=== PATIENT | female | born 1950 | race Caucasian/White ===

== ENCOUNTER → 2016-05-06 | Outpatient (CLI) | payer MEDICARE, BC ==
--- NOTE | 2016-05-06 22:32 | WWHP ---
DATE OF SERVICE: 05/06/2016 CHIEF COMPLAINT: The patient is here for her routine gynecologic exam and mammogram. HISTORY OF PRESENT ILLNESS: This is a 65-year-old G3, P2-0-1-2 with an LMP of 1995. The patient is without gynecologic complaints. PAST MEDICAL HISTORY: 1. Previous Manuelito's disease and Graves' disease, status post radiation therapy with resulting hypothyroidism. 2. History of multiple sclerosis. 3. Herniated discs of the back. 4. Fibromyalgia. 5. Elevated cholesterol. 6. Osteopenia. MEDICATIONS: 1. Lipitor 20 mg daily. 2. Synthroid 125 mcg daily. 3. Baclofen 40 mg b.i.d. 4. Neurontin 300 mg b.i.d. 5. Aspirin 81 mg daily. 6. Xanax 0.5 mg at bedtime. 7. [place] 10/325 mg p.r.n. 8. Multivitamin daily. 9. Vitamin D 5000 units daily. 10. Vitamin B complex daily. 11. Fish oil supplement 2 daily. ALLERGIES: NO KNOWN DRUG ALLERGIES. 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 SOCIAL HISTORY: She quit smoking in 2003 and denies alcohol and drug use. She has been since 1974. 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 REVIEW OF SYSTEMS: She has lost about 4 pounds over the last year. She denies respiratory, cardiac or GI problems. She denies maltreatment or falling. : Occasional stress incontinence. PHYSICAL EXAM: Blood pressure 127/83. Height 5 feet 5 inches. Weight 217 pounds. Temperature 98.5. Pulse 79. This is a well-developed, well-nourished white female who is alert and oriented x3, in no acute distress. She does have some leg weakness related to her MS. HEENT is within normal limits. NECK: Supple without mass or thyromegaly. CHEST AND LUNGS: Clear to auscultation. HEART: Regular rate and rhythm. Breasts are without mass or discharge. Axillary exam is negative for adenopathy. BACK: Negative for CVA tenderness. ABDOMEN: Mildly obese, soft, nontender, without palpable masses. PELVIC EXAM: External genitalia reveal mild atrophy without lesions. Cervix and vagina reveal mild atrophy without lesions. There is no significant prolapse and no significant cystocele at rest. The uterus is midposition, nongravid size and nontender. There are no palpable adnexal masses or tenderness. Rectovaginal exam is negative for mass or tenderness and is negative for occult blood. EXTREMITIES: Nontender. IMPRESSION: 1. A 65-year-old menopausal female with normal gynecologic exam. 2. Mild stress urinary incontinence without any significant physical findings at this time. 3. History of osteopenia. PLAN: 1. Pap smear was deferred, since she had a normal one last year. 2. Self breast examination was discussed. 3. Mammogram will be done today. 4. I have recommended screening colonoscopy, since she has not had this done. She states she will consider looking into this. 5. She will continue to do Kegel exercises as directed. 6. She will follow up with her illuminating engineer for bone density testing, as she has done in the past. 7. She will return in one year.
--- NOTE | 2016-05-07 10:10 | MM ---
Reason for exam: screening (asymptomatic). Last mammogram was performed 1 year and 1 month ago. History: Patient is postmenopausal. Family history of breast cancer in maternal grandmother and breast cancer in mother. Physical Findings: A clinical breast exam by your physician is recommended on an annual basis and results should be correlated with mammographic findings. MG 3D Screening Mammo W/Cad Bilateral CC and MLO view(s) were taken. Prior study comparison: April 10, 2015, bilateral MG screening mammo w CAD. April 05, 2014, bilateral MG screening mammo w CAD. There are scattered fibroglandular densities. There is no discrete abnormality. ASSESSMENT: Negative, BI-RAD 1 RECOMMENDATION: Routine screening mammogram of both breasts in 1 year.
== END | disposition home or self-care (01) ==
LOC: WWCWWP 13:13
PROVIDERS: ATTEND Obstetrics & Gynecology
DX: Z12.31 Encounter for screening mammogram for malignant neoplasm of breast (principal)
CPT/HCPCS: 77063; G0202

== ENCOUNTER → 2017-05-19 | Outpatient (CLI) | payer MEDICARE, BC ==
--- NOTE | 2017-05-19 16:37 | WWHP ---
[facility] - HISTORY AND PHYSICAL DATE OF DICTATION: 05/19/2017 CHIEF COMPLAINT: The patient is here for her routine gynecologic exam and mammogram. HISTORY OF PRESENT ILLNESS: This is a 66-year-old G3, P2-0-1-2 with an LMP of 1995. The patient is without gynecologic complaints and denies any postmenopausal bleeding. PAST MEDICAL HISTORY: Manuelito's disease and Graves disease in the past, and she is status post radiation therapy with resulting hypothyroidism. Also history of multiple sclerosis, herniated discs of the back, fibromyalgia, elevated cholesterol and osteopenia. MEDICATIONS: 1. Lipitor 20 mg daily. 2. Synthroid 112 mcg daily. 3. Baclofen 40 mg b.i.d. 4. Neurontin 300 mg b.i.d. 5. Aspirin 81 mg daily. 6. Xanax 0.5 mg at bedtime. 7. [place] 10/325 mg p.r.n. 8. Multivitamin 1 daily. 9. Vitamin D 5000 units daily. 10.Vitamin B complex daily. 11.Fish oil supplement 2 daily. ALLERGIES: NO KNOWN DRUG ALLERGIES. Past surgical, IT GENERALIST and family histories are unchanged from the 04/10/2015 H&P. SOCIAL HISTORY: She quit smoking in 2003 and denies alcohol and drug use. She has been since 1974. Her has been dealing with multiple types of cancer. 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 REVIEW OF SYSTEMS: She has gained 3 pounds over the last year. She denies respiratory, cardiac or GI problems. She denies maltreatment or falling. : She does have occasional urinary stress incontinence and has noticed more leakage at night, so she has to wear a pad at night. PHYSICAL EXAMINATION: Blood pressure 127/83, height 5 feet 5 inches, weight 220 pounds, BMI 36. Temperature 98.3, pulse 76. This is a well-developed, heavyset white female who is alert and oriented x3, in no acute distress. HEENT: Within normal limits. NECK: Supple without mass or thyromegaly. CHEST AND LUNGS: Clear to auscultation. HEART: Regular rate and rhythm. Breasts are without mass or discharge. Axillary exam is negative for adenopathy. BACK: Negative for CVA tenderness. ABDOMEN: Soft, nontender, without palpable masses. PELVIC EXAM: External genitalia reveal mild atrophy without lesions. Cervix and vagina reveal mild atrophy without lesions. There is no significant prolapse. The uterus is mid position, nongravid size and nontender. There are no palpable adnexal masses or tenderness. Rectovaginal exam is negative for mass or tenderness and is negative for occult blood. Extremities are nontender. IMPRESSION: 1. [id number]-old menopausal female with normal gynecologic exam. 2. History of osteopenia. 3. Mild stress urinary incontinence without any significant physical findings at this time. PLAN: 1. Pap smear was performed. 2. Self breast examination was discussed. 3. Screening mammogram will be done today. 4. I have recommended screening colonoscopy based on her age. She is declining this. I have stressed the importance of doing this for cancer screening, and she understands this. 5. Osteoporosis prevention was discussed. She will follow up with her director microbiology for management of her osteopenia and for bone density testing as she has done in the past. 6. She will return in one year. MMODL / IJN: [id number] / MARCELINO
--- NOTE | 2017-05-20 09:16 | MM ---
Reason for exam: screening (asymptomatic). Last mammogram was performed 1 year ago. History: Patient is postmenopausal. Family history of breast cancer in maternal grandmother and breast cancer in mother. Physical Findings: A clinical breast exam by your physician is recommended on an annual basis and results should be correlated with mammographic findings. MG 3D Screening Mammo W/Cad Bilateral CC and MLO view(s) were taken. Prior study comparison: May 06, 2016, bilateral MG 3d screening mammo w/cad. April 10, 2015, bilateral MG screening mammo w CAD. The breast tissue is heterogeneously dense. This may lower the sensitivity of mammography. No significant changes when compared with prior studies. ASSESSMENT: Benign, BI-RAD 2 RECOMMENDATION: Routine screening mammogram of both breasts in 1 year.
== END | disposition home or self-care (01) ==
LOC: WWCWWP 14:40
PROVIDERS: ATTEND Obstetrics & Gynecology
DX: Z12.31 Encounter for screening mammogram for malignant neoplasm of breast (principal)
CPT/HCPCS: 77063; 77067

== ENCOUNTER → 2018-06-02 | Outpatient (CLI) | payer MEDICARE, BC ==
[2018-06-02 11:05] VITALS: BP 141/78; PULSE 68; RESP 16; TEMP 96.8; BMI 34.3
--- NOTE | 2018-06-02 13:47 | P.HPOB ---
History of Present Illness H&P Date: 06/02/18 Chief Complaint: The patient is here for her routine gynecologic exam and mammogram. This is a 67-year-old with an LMP of 1995. The patient is without gynecologic complaints and denies any postmenopausal bleeding. The patient did have an abnormal Pap smear on 05/19/2017 showing ascus with negative high-risk HPV testing. Review of Systems She has lost about 20 pounds over the last year. She denies respiratory or cardiac problems. G.I.: occasional constipation. She denies maltreatment or problems with falling. : she does have a history of stress urinary incontinence and can leak if she coughs hard. Past Medical History Past Medical History: Fibromyalgia, Thyroid Disorder Additional Past Medical History / Comment(s): Manuelito's and Graves' disease status post radiation therapy. Multiple sclerosis, carpal tunnel chronic back problems, fibromyalgia, and osteopenia. 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 She used HRT for about 10 years in the past. History of Any Multi-Drug Resistant Organisms: None Reported Past Surgical History: Adenoidectomy, Back Surgery, Tonsillectomy, Tubal Ligation Additional Past Surgical History / Comment(s): Cervical neck fusion. Past Psychological History: Anxiety Smoking Status: Former smoker (Quit in 2003) Past Alcohol Use History: None Reported Past Drug Use History: None Reported Additional History: She quit smoking 2003. She has been since 1974 and her has had several types of cancer. 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 - Past Family History Father Family Medical History: Diabetes Mellitus (Type II diabetes) Mother Family Medical History: Cancer Additional Family Medical History / Comment(s): Breast and uterine cancer. Maternal grandmother had breast cancer. Medications and Allergies Home Medications Medication Instructions Recorded Confirmed Type ALPRAZolam [Xanax] 0.5 mg PO HS PRN 12/31/13 06/02/18 History Baclofen [Lioresal] 40 mg PO BID 12/31/13 06/02/18 History Gabapentin [Neurontin] 300 mg PO BID 12/31/13 06/02/18 History HYDROcodone/APAP 10-325MG [[place] 1 each PO Q4HR PRN 12/31/13 06/02/18 History 10] Atorvastatin [Lipitor] 20 mg PO DAILY 06/02/18 06/02/18 History Allergies Allergy/AdvReac Type Severity Reaction Status Date / Time No Known Allergies Allergy Verified 06/02/18 10:52 Exam Vital Signs Temp Pulse Resp BP Pulse Ox 06/02/18 10:59 96.8 F L 68 16 141/78 97 Intake and Output 06/01/18 06/02/18 06/02/18 22:59 06:59 14:59 Other: Weight 90.718 kg Height 5'4", weight 200 pounds, BMI 34.3. This is a well-developed well-nourished heavyset white female who is alert and oriented times 3 in no acute distress. She has a very slow gait because of leg weakness secondary to multiple sclerosis. She uses a cane to walk. HEENT: Within normal limits. NECK: Supple without mass or thyromegaly. CHEST AND LUNGS: Clear to auscultation. HEART: Regular rate and rhythm. BREASTS: Are without mass or discharge. AXILLARY EXAM: Negative for adenopathy. BACK: Negative for CVA tenderness. ABDOMEN: Soft, nontender, without palpable masses. PELVIC EXAM: Normal external genitalia with mild atrophy. Cervix and vagina appear normal of mild atrophy. There is no unusual discharge. There is a small cystocele. The uterus is midposition, nongravid size and nontender. There are no palpable adnexal masses or tenderness. RECTAL EXAM: rectovaginal exam is negative for mass or tenderness and is negative for occult blood. EXTREMITIES: Nontender. IMPRESSION: 1. 67-year-old menopausal female with small cystocele and history of stress urinary incontinence. 2. History of abnormal Pap smear showing ascus with negative high-risk HPV testing. 3. Multiple medical problems including multiple sclerosis. 4. History of osteopenia followed by her gate clerk. PLAN: 1. Pap smear with high-risk HPV testing (co-test) was performed. This is the recommended follow-up for her Pap smear abnormality in women greater than 65 years of age. 2. Self breast awareness was discussed with the patient. 3. Screening mammogram will be done today. 4. Osteoporosis prevention was discussed. I have stressed the importance of adequate calcium, vitamin D and regular exercise. Recommended amounts of calcium and vitamin D were also discussed. She states she will follow-up with her gate clerk to determine when her next bone density test should be. 5. She does not get flu shots and is not interested in getting one. 6. I have recommended screening colonoscopy since she has never had this done. She is declining this and is planning to speak with Dr. Arana regarding possible Cologard testing. 7. She will return in one year.
--- NOTE | 2018-06-03 11:11 | MM ---
Reason for exam: screening (asymptomatic). Last mammogram was performed 1 year ago. History: Patient is postmenopausal. Family history of breast cancer in maternal grandmother and breast cancer in mother. Physical Findings: A clinical breast exam by your physician is recommended on an annual basis and results should be correlated with mammographic findings. MG 3D Screening Mammo W/Cad Bilateral CC and MLO view(s) were taken. Prior study comparison: May 19, 2017, bilateral MG 3d screening mammo w/cad. May 06, 2016, bilateral MG 3d screening mammo w/cad. There are scattered fibroglandular densities. No significant changes when compared with prior studies. ASSESSMENT: Benign, BI-RAD 2 RECOMMENDATION: Routine screening mammogram of both breasts in 1 year.
== END | disposition home or self-care (01) ==
LOC: WWCWWP 10:42
PROVIDERS: ATTEND Obstetrics & Gynecology
DX: Z12.31 Encounter for screening mammogram for malignant neoplasm of breast (principal)
CPT/HCPCS: 77063; 77067

== ENCOUNTER → 2019-02-08 | Outpatient (CLI) | payer MEDICARE, BC ==
[2019-02-08 14:30] VITALS: BP 135/77; PULSE 71; RESP 18; TEMP 98.1; BMI 36.2
--- NOTE | 2019-02-08 15:04 | P.PN ---
Progress Note - Text Progress Note Date: 02/08/19 Chief Complaint: 5 days of vaginal spotting starting 1 week ago. HPI: This is a 68-year-old 012 with an LMP of 1995. The patient started having vaginal spotting about 1 week ago. She states it was never like a period flow and she denies any cramping or pain. She has not been sexually active for many years. She has not had any spotting for the last 2 days. She did use HRT about 25 years ago but has not used this for many years. She denies using any supplements or medications for menopausal symptoms. ROS: She denies respiratory, cardiac, or GI problems. She denies any urinary symptoms and does not believe the blood is in her urine. She also denies any rectal bleeding. PE: Blood pressure: 135/77, Height: 5 feet 4 inches, Weight: 211 pounds, Temperature: 98.1, Pulse: 71. Pulse oximeter 98%. This is a well developed, well nourished, white female who is alert and oriented x3, in no acute distress. Abdomen: Soft nontender without palpable masses. Pelvic exam: External genitalia reveals mild atrophy without lesions. Cervix and vagina reveals mild atrophy without lesions. There is no blood or unusual discharge. There is no cervical motion tenderness. The uterus is mid positioned, nongravid size and nontender. There are no palpable adnexal masses or tenderness. Pap smear on 06/02/2018 was negative with negative high-risk HPV. Impression: 1. 68-year-old menopausal female with small postmenopausal bleeding during the past week with no significant physical findings on exam today. Plan: 1. Pelvic ultrasound will be done today to evaluate the endometrial thickness. If there is no evidence of endometrial thickening, consider conservative management with observation. If endometrial thickening is noted or if recurrent postmenopausal vaginal bleeding, consider endometrial sampling by endometrial biopsy or hysteroscopy with D&C. Time spent with the patient: 20 minutes
--- NOTE | 2019-02-08 15:57 | US ---
EXAMINATION TYPE: US transvaginal DATE OF EXAM: 02/08/2019 COMPARISON: NONE CLINICAL HISTORY: N95.0 PMB. TECHNIQUE: Transvaginal (TV Date of LMP: post menopausal patient EXAM MEASUREMENTS: Uterus: 5.5 x 2.9 x 4.6 cm Endometrial Stripe: 0 poorly visualized cm Right Ovary: 1.0 x 0.7 x 0.7 cm Left Ovary: not visualized due to atrophy/overlying bowel gas 1. Uterus: Retroverted, fibroid noted measuring 1.6 x 1.5 x 1.8cm 2. Endometrium: Poorly defined, probable within normal limits 3. Right Ovary: wnl 4. Left Ovary: not visualized due to atrophy/overlying bowel gas 5. Bilateral Adnexa: wnl 6. Posterior cul-de-sac: wnl Poor visualization of central endometrium. Probable 1.8 cm fundal fibroid noted. IMPRESSION: There is 1.8 cm fundal subserosal fibroid.
--- NOTE | 2019-02-09 13:53 | P.PN ---
Progress Note - Text Progress Note Date: 02/09/19 OUTPATIENT FOLLOW-UP NOTE TEST(S)/RESULTS: Pelvic ultrasound on 02/08/2019 shows small 1.8 cm fundal fibroid. The endometrium appears to be at the upper limits of normal measuring 0.5 cm and does not appear thickened. METHOD OF NOTIFICATION: The patient was notified by phone. PATIENT COMMENTS: DIAGNOSIS: Benign appearing pelvic ultrasound with no significant endometrial thickening after small episode of postmenopausal bleeding DISCUSSION: The patient was instructed to call if she has any recurrent vaginal bleeding. If this occurs, we will I will refer her for hysteroscopy and D&C. PLAN: She will otherwise return in May 2019 for her annual examination.
== END | disposition home or self-care (01) ==
LOC: WWCWWP 13:56
PROVIDERS: ATTEND Obstetrics & Gynecology
DX: D25.2 Subserosal leiomyoma of uterus (principal)
CPT/HCPCS: 76830

== ENCOUNTER → 2019-06-14 | Outpatient (CLI) | payer MEDICARE, BC ==
[2019-06-14 15:20] VITALS: BP 137/72; PULSE 76; RESP 18; TEMP 98.5
--- NOTE | 2019-06-14 16:00 | P.HPOB ---
History of Present Illness H&P Date: 06/14/19 Chief Complaint: The patient is here for her routine gynecologic exam and ma mmogram. This is a 68-year-old with an LMP of 1996. The patient was seen in February 2019 for a episode of small postmenopausal bleeding and pelvic ultrasound showed no endometrial thickening. She denies any vaginal bleeding since then. Her last Pap smear on 06/02/2018 was negative with negative high- risk HPV testing. The prior Pap smear showed ASCUS with negative high-risk HPV testing. Review of Systems She has gained 3 pounds over the past year. She denies respiratory, cardiac and G.I. problems. She denies maltreatment or problems with falling. : She does get up every few hours at night. Past Medical History Past Medical History: Fibromyalgia, Thyroid Disorder Additional Past Medical History / Comment(s): Manuelito's and Graves' disease status post radiation therapy. Multiple sclerosis, carpal tunnel chronic back problems, fibromyalgia, and osteopenia. 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 She used HRT for about 10 years in the past. History of Any Multi-Drug Resistant Organisms: None Reported Past Surgical History: Adenoidectomy, Back Surgery, Tonsillectomy, Tubal Ligation Additional Past Surgical History / Comment(s): Cervical neck fusion. Past Psychological History: Anxiety Smoking Status: Former smoker Past Alcohol Use History: None Reported Additional Past Alcohol Use History / Comment(s): Quit smoking in 2003. Past Drug Use History: None Reported Additional History: She became a in 2018. 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 - Past Family History Father Family Medical History: Diabetes Mellitus Mother Family Medical History: Cancer Additional Family Medical History / Comment(s): Breast and uterine cancer. Maternal grandmother had breast cancer. Medications and Allergies Home Medications Medication Instructions Recorded Confirmed Type ALPRAZolam [Xanax] 0.5 mg PO HS PRN 12/31/13 06/14/19 History Baclofen [Lioresal] 40 mg PO BID 12/31/13 06/14/19 History Gabapentin [Neurontin] 400 mg PO HS 12/31/13 06/14/19 History HYDROcodone/APAP 10-325MG [[place] 1 each PO Q4HR PRN 12/31/13 06/14/19 History 10] Atorvastatin [Lipitor] 20 mg PO DAILY 06/02/18 06/14/19 History Cbd Oil 1,000 mg PO HS 02/08/19 06/14/19 History Cholecalciferol [Vitamin D3 (25 5,000 unit PO DAILY 02/08/19 06/14/19 History Mcg = 1000 Iu)] Levothyroxine Sodium 112 mcg PO DAILY 02/08/19 06/14/19 History Multivitamin [Multivitamins Adult 1 each PO DAILY 02/08/19 06/14/19 History Gummies] [place]-3/Dha/Epa/Fish Oil [Fish Oil 1 each PO DAILY 02/08/19 06/14/19 History 500 mg Softgel] Vitamin B Complex 1 each PO DAILY 02/08/19 06/14/19 History Allergies Allergy/AdvReac Type Severity Reaction Status Date / Time No Known Allergies Allergy Verified 06/14/19 15:20 Exam Vital Signs Temp Pulse Resp BP Pulse Ox 06/14/19 15:14 98.5 F 76 18 137/72 96 Intake and Output 06/14/19 06/14/19 06/14/19 06:59 14:59 22:59 Other: Weight 92.079 kg Height 5 feet 3 inches, weight 203 pounds, BMI 36.0. This is a well-developed well-nourished white female who is alert and oriented times 3 in no acute distress. She gets emotional when she talks about her re cently . HEENT: Within normal limits. NECK: Supple without mass or thyromegaly. CHEST AND LUNGS: Clear to auscultation. HEART: Regular rate and rhythm. BREASTS: Are without mass or discharge. AXILLARY EXAM: Negative for adenopathy. BACK: Negative for CVA tenderness. ABDOMEN: Soft, nontender, without palpable masses. PELVIC EXAM: Normal external genitalia with mild atrophy. Cervix and vagina appear normal with mild atrophy. There is no unusual discharge. There is a grade 1-2 cystocele which is stable from her previous exam. The uterus is midposition, nongravid size and nontender. There are no palpable adnexal masses or tenderness. RECTAL EXAM: Rectovaginal exam is negative for mass or tenderness and is negative for occult blood. EXTREMITIES: Nontender. IMPRESSION: 1. 68-year-old menopausal female with normal gynecologic exam with stable grade 1-2 cystocele. 2. Nocturia, possible overactive bladder. 3. History of osteopenia followed by her gym instructor. 4. Multiple medical problems including history of multiple sclerosis. PLAN: 1. Pap smear was deferred since she had a normal Pap smear on 06/02/2018 with a negative high-risk HPV testing. We will continue to do Pap smears about every 2-3 years until we have had 3 negative ones. At that time we will consider discontinuing Pap smears. She did have an ASCUS Pap smear in 2018. 2. Self breast awareness was discussed with the patient. 3. Screening mammogram will be done today. 4. Osteoporosis prevention was discussed. I have stressed the importance of adequate calcium, vitamin D and regular exercise. Recommended amounts of calcium and vitamin D were also discussed. She will continue to be followed for this by her gym instructor as she has done in the past. 5. I have recommended screening colonoscopy since she has never had this done. We also discussed alternatives such as Cologard testing. She will discuss these options with Dr. Arana, her primary care physician. 6. We have discussed the option of a trial of anticholinergic medication for her overactive bladder and nocturia symptoms. She will consider this and call me if she wishes to try this. 7. She was advised to return in one year for her annual well woman exam.
--- NOTE | 2019-06-15 11:48 | MM ---
Reason for exam: screening (asymptomatic). Last mammogram was performed 1 year ago. History: Patient is postmenopausal. Family history of breast cancer in maternal grandmother and breast cancer in mother. Physical Findings: A clinical breast exam by your physician is recommended on an annual basis and results should be correlated with mammographic findings. MG 3D Screening Mammo W/Cad Bilateral CC and MLO view(s) were taken. Prior study comparison: June 02, 2018, bilateral MG 3d screening mammo w/cad. May 19, 2017, bilateral MG 3d screening mammo w/cad. Benign appearing calcifications in the left breast. No significant changes when compared with prior studies. ASSESSMENT: Benign, BI-RAD 2 RECOMMENDATION: Routine screening mammogram of both breasts in 1 year.
== END | disposition home or self-care (01) ==
LOC: WWCWWP 15:06
PROVIDERS: ATTEND Obstetrics & Gynecology
DX: Z12.31 Encounter for screening mammogram for malignant neoplasm of breast (principal)
CPT/HCPCS: 77063; 77067

== ENCOUNTER → 2020-07-31 | Outpatient (CLI) | payer MEDICARE, BC ==
[2020-07-31 14:18] VITALS: BP 154/82; PULSE 73; RESP 18; TEMP 98.3
--- NOTE | 2020-07-31 14:58 | P.HPOB ---
History of Present Illness H&P Date: 07/31/20 Chief Complaint: The patient is here for her routine gynecologic exam and ma mmogram. This is a 69-year-old 012 with an LMP of 1996. The patient is without gynecologic complaints and denies any postmenopausal bleeding. Pap smear in 2018 showed ASCUS with negative high-risk HPV testing. Repeat testing on 06/02/2018 showed a negative Pap with negative high-risk HPV testing. Review of Systems Weight has been stable. She denies respiratory, cardiac and G.I. problems. She denies maltreatment or problems with falling. : She feels that her bladder does not hold is much year and compared to the past. She continues to have occasional slight urinary leakage. 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 Multiple sclerosis, carpal tunnel chronic back problems, fibromyalgia, and osteopenia. 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 She used HRT for about 10 years in the past. History of Any Multi-Drug Resistant Organisms: None Reported Past Surgical History: Adenoidectomy, Back Surgery, Tonsillectomy, Tubal Ligation Additional Past Surgical History / Comment(s): Cervical neck fusion. Past Psychological History: Anxiety Smoking Status: Former smoker Past Alcohol Use History: None Reported Additional Past Alcohol Use History / Comment(s): Quit smoking in 2003. Past Drug Use History: None Reported Additional History: She became a in early 2019 and is not sexually active. 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 - Past Family History Father Family Medical History: Diabetes Mellitus Mother Family Medical History: Cancer Additional Family Medical History / Comment(s): Breast and uterine cancer. Maternal grandmother had breast cancer. Medications and Allergies Home Medications Medication Instructions Recorded Confirmed Type ALPRAZolam [Xanax] 0.5 mg PO HS PRN 12/31/13 07/31/20 History Baclofen [Lioresal] 40 mg PO BID 12/31/13 07/31/20 History Gabapentin [Neurontin] 400 mg PO HS 12/31/13 07/31/20 History HYDROcodone/APAP 10-325MG [[place] 1 each PO Q4HR PRN 12/31/13 07/31/20 History 10] Atorvastatin [Lipitor] 20 mg PO DAILY 06/02/18 07/31/20 History Cholecalciferol [Vitamin D3 (25 5,000 unit PO DAILY 02/08/19 07/31/20 History Mcg = 1000 Iu)] Levothyroxine Sodium 112 mcg PO DAILY 02/08/19 07/31/20 History Multivitamin [Multivitamins Adult 1 each PO DAILY 02/08/19 07/31/20 History Gummies] [place]-3/Dha/Epa/Fish Oil [Fish Oil 1 each PO DAILY 02/08/19 07/31/20 History 500 mg Softgel] Vitamin B Complex 1 each PO DAILY 02/08/19 07/31/20 History Allergies Allergy/AdvReac Type Severity Reaction Status Date / Time No Known Allergies Allergy Verified 07/31/20 14:16 Exam Vital Signs Temp Pulse Resp BP Pulse Ox 07/31/20 14:16 98.3 F 73 18 154/82 98 Intake and Output 07/30/20 07/31/20 07/31/20 22:59 06:59 14:59 Other: Weight 92.533 kg Height 5 feet 3 inches, weight 204 pounds, BMI 36.1. This is a well-developed well-nourished white female who is alert and oriented times 3 in no acute distress. She has a slow gait and she attributes this to her MS. HEENT: Within normal limits. NECK: Supple without mass or thyromegaly. CHEST AND LUNGS: Clear to auscultation. HEART: Regular rate and rhythm. BREASTS: Are without mass or discharge. AXILLARY EXAM: Negative for adenopathy. BACK: Negative for CVA tenderness. ABDOMEN: Soft, nontender, without palpable masses. PELVIC EXAM: Normal external genitalia is mild atrophy. Cervix and vagina appear normal mild atrophy. There is no unusual discharge. There is a minimal cystocele and no other significant prolapse. The uterus is midposition, nongravid size and nontender. There are no palpable adnexal masses or tenderness. RECTAL EXAM: Rectovaginal exam is negative for mass or tenderness and is negative for occult blood. EXTREMITIES: Nontender. IMPRESSION: 1. 69-year-old menopausal female with stable small cystocele. 2. History of osteopenia followed by her recreation supervisor. 3. Small her bladder capacity possibly secondary to her menopausal change. She does have urine testing done for infection by her PCP when needed. 4. Multiple medical problems including multiple sclerosis. PLAN: 1. Pap smear cotest was performed. If this is negative we will go back to routine screening. 2. Self breast awareness was discussed with the patient. 3. Screening mammogram will be done today. 4. I have recommended a screening colonoscopy since she has never had this done. She would like to discuss other options such as Cologuard with her PCP. 5. She has completed her Covid vaccination series. 6. We have discussed osteoporosis prevention. She will continue to do bone density testing through her recreation supervisor as she has done in the past. 7. She was advised to return in one year for her annual well woman exam.
--- NOTE | 2020-08-01 09:07 | MM ---
Reason for exam: screening (asymptomatic). Last mammogram was performed 1 year and 2 months ago. History: Patient is postmenopausal. Family history of breast cancer in maternal grandmother and breast cancer in mother. Physical Findings: A clinical breast exam by your physician is recommended on an annual basis and results should be correlated with mammographic findings. MG 3D Screening Mammo W/Cad Bilateral CC and MLO view(s) were taken. Prior study comparison: June 14, 2019, bilateral MG 3d screening mammo w/cad. June 02, 2018, bilateral MG 3d screening mammo w/cad. The breast tissue is heterogeneously dense. This may lower the sensitivity of mammography. There is no discrete abnormality. No significant changes when compared with prior studies. ASSESSMENT: Negative, BI-RAD 1 RECOMMENDATION: Routine screening mammogram of both breasts in 1 year.
== END ==
LOC: WWCWWP 14:01
PROVIDERS: ATTEND Obstetrics & Gynecology
DX: Z12.31 Encounter for screening mammogram for malignant neoplasm of breast (principal); Z01.419 Encounter for gynecological examination (general) (routine) without abnormal findings; Z87.39 Personal history of other diseases of the musculoskeletal system and connective tissue; F41.9 Anxiety disorder, unspecified; G35 Multiple sclerosis; Z78.0 Asymptomatic menopausal state; Z87.891 Personal history of nicotine dependence
CPT/HCPCS: 77063; 77067

== ENCOUNTER → 2022-07-21 | Outpatient (CLI) | payer MEDICARE, BC ==
--- NOTE | 2022-07-21 15:14 | MR ---
EXAMINATION TYPE: MR lumbar spine wo con DATE OF EXAM: 07/21/2022 COMPARISON: MR thoracic lumbar spine 07/19/2014, lumbar spine radiograph 08/03/2014 HISTORY: Low back pain. TECHNIQUE: Multiplanar, multisequence images of the lumbar spine were acquired without IV contrast. FINDINGS: Lumbar segments are intact. Grade 1 anterolisthesis of L2 on L3 and L5 and S1 which is similar to pr ior exam. L5-S1 bilateral pars defects. No paraspinal masses are identified. Conus medullaris has a normal appearance. Multilevel Schmorl's nodes. Altered level disc desiccation. L1-L2: Broad-based disc bulge without significant central canal stenosis. Bilateral facet arthropathy . The neural foramen are patent bilaterally. L2-L3: Grade 1 anterolisthesis with uncovering of the disc. Broad-based disc bulge with ligamentum fl avum buckling and facet arthropathy contributing to moderate spinal canal stenosis. This is progresse d from prior exam. Moderate bilateral neural foraminal stenosis. L3-L4: Broad-based disc bulge with ligamentum flavum buckling and facet arthropathy contributing to m oderate spinal canal stenosis. Minimal right and severe left neural foraminal stenosis. L4-L5: Eccentric broad-based left posterior paracentral disc bulge with mild effacement of anterior t hecal sac. There is facet arthropathy with ligamentum flavum buckling resulting in mild central canal stenosis. Minimal bilateral neural foraminal stenosis. L5-S1: Grade 1 anterolisthesis with uncovering of the disc. Bilateral pars defects with facet arthrop athy. Broad-based disc bulge without significant central canal stenosis. Moderate bilateral neural fo raminal stenosis. IMPRESSION: Mild progression of multilevel degenerative disc disease and facet arthropathy from prior examination in 2014. This results in moderate central canal stenosis at L2-L3 and L3-L4.
== END | disposition home or self-care (01) ==
LOC: RADMRIMAIN 14:23
PROVIDERS: ATTEND Psychiatry & Neurology Neurology
DX: M51.37 Other intervertebral disc degeneration, lumbosacral region (principal); M47.816 Spondylosis without myelopathy or radiculopathy, lumbar region; M99.73 Connective tissue and disc stenosis of intervertebral foramina of lumbar region
CPT/HCPCS: 72148

== ENCOUNTER → 2022-08-28 | Outpatient (CLI) | payer MEDICARE, BC ==
--- NOTE | 2022-08-28 19:42 | US ---
EXAMINATION TYPE: US thyroid st tissue head/neck DATE OF EXAM: 08/28/2022 COMPARISON: 11/08/2012 CLINICAL INDICATION: Female, 71 years old with history of E07.9 THYROID MASS; patient had chronic thy roid nodules that were biopsied in 2012, patient has since had iodine radiation 10 year ago. Patient had scan of the neck at outside facility and they noticed 3.7cm mass on left side of neck GLAND SIZE: Right Lobe: 3.8 x 1.7 x 1.7 cm Overall Parenchyma: heterogenous Left Lobe: 4.5 x 2.4 x 2.3 cm Overall Parenchyma: heterogenous Isthmus Thickness: 0.3 cm NODULES RIGHT: # of nodules measured on right: 1 - previous FNA 1. 1.9 X 1.6 x 1.4 cm, mid, solid or almost completely solid, hypoechoic nodule, which is wider evelyn n tall, with smooth margins, without echogenic foci. Prior size: 2.2 x 1.5 x 1.9 cm LEFT: # of nodules measured on left: 2 - both have previous FNA 1. 2.4 x 2.1 x 2.0 cm, mid, solid or almost completely solid, hyperechoic nodule, which is wider evelyn n tall, with smooth margins, without echogenic foci. Prior size: 2.5 x 2.0 x 2.6 cm 2. 1.5 X 1.5 x 1.3 cm, lower , solid or almost completely solid, hyperechoic nodule, which is wide r than tall, with smooth margins, without echogenic foci. Prior size: 1.9 x 2.0 x 1.7 cm ISTHMUS: # of nodules measured in the isthmus: 0 Bilateral neck scanned, no evidence of lymphadenopathy. Sew Out Operator notes: The 2 nodules on the left side of th thyroid, when measured together, measure clos er to the 3.7cm that was noted on outside imaging. IMPRESSION: Very heterogeneous thyroid gland. One dominant solid nodule on the right at 1.9 cm and 2 dominant gilmar id nodules on the left measuring 2.4 cm and 1.5 cm. All of these have previously been biopsied and re main stable. The 2 nodules on the left when measured together may represent the 3.7 cm mass noted on outside imaging. Further clinical corroboration is advised.
== END | disposition home or self-care (01) ==
LOC: RADUSWWP 12:55
PROVIDERS: ATTEND Family Medicine
DX: E04.2 Nontoxic multinodular goiter (principal); E07.9 Disorder of thyroid, unspecified
CPT/HCPCS: 76536

== ENCOUNTER → 2022-09-02 | Outpatient (CLI) | payer MEDICARE, BC ==
[2022-09-02 14:14] VITALS: BP 130/72; PULSE 80; RESP 16; TEMP 98.1
--- NOTE | 2022-09-02 14:57 | P.HPOB ---
History of Present Illness H&P Date: 09/02/22 Chief Complaint: The patient is here for her routine gynecologic exam and ma mmogram. This is a 71-year-old 012 with an LMP of 1995. The patient is without gynecologic complaints. Review of Systems The patient has lost 11 pounds over the last year. She denies respiratory, cardiac, or G.I. problems. 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 Multiple sclerosis, carpal tunnel chronic back problems, degenerative disc disease, fibromyalgia, and osteopenia. 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 She used HRT for about 10 years in the past. History of Any Multi-Drug Resistant Organisms: None Reported Past Surgical History: Adenoidectomy, Back Surgery, Joint Replacement, Tonsillectomy, Tubal Ligation Additional Past Surgical History / Comment(s): Cervical neck fusion. Right knee replacement surgery. Past Psychological History: Anxiety Smoking Status: Former smoker Past Alcohol Use History: None Reported Additional Past Alcohol Use History / Comment(s): Quit smoking in 2003. Past Drug Use History: None Reported Additional History: She has been a since 2019 and is not sexually active. 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 - Past Family History Father Family Medical History: Diabetes Mellitus Mother Family Medical History: Cancer Additional Family Medical History / Comment(s): Breast and uterine cancer. Maternal grandmother had breast cancer. Medications and Allergies Home Medications Medication Instructions Recorded Confirmed Type ALPRAZolam [Xanax] 0.5 mg PO HS PRN 12/31/13 09/02/22 History Baclofen [Lioresal] 40 mg PO BID 12/31/13 09/02/22 History Gabapentin [Neurontin] 400 mg PO HS 12/31/13 09/02/22 History HYDROcodone/APAP 10-325MG [[place] 1 each PO Q4HR PRN 12/31/13 09/02/22 History 10] Atorvastatin [Lipitor] 20 mg PO DAILY 06/02/18 09/02/22 History Cholecalciferol [Vitamin D3 (25 5,000 unit PO DAILY 02/08/19 09/02/22 History Mcg = 1000 Iu)] Levothyroxine Sodium 112 mcg PO DAILY 02/08/19 09/02/22 History Multivitamin [Multivitamins Adult 1 each PO DAILY 02/08/19 09/02/22 History Gummies] [place]-3/Dha/Epa/Fish Oil [Fish Oil 1 each PO DAILY 02/08/19 09/02/22 History 500 mg Softgel] Vitamin B Complex 1 each PO DAILY 02/08/19 09/02/22 History Losartan [Cozaar] 25 mg PO DAILY 09/02/22 09/02/22 History Allergies Allergy/AdvReac Type Severity Reaction Status Date / Time No Known Allergies Allergy Verified 09/02/22 14:09 Exam Vital Signs Temp Pulse Resp BP Pulse Ox 09/02/22 14:11 98.1 F 80 16 130/72 99 Intake and Output 09/01/22 09/02/22 09/02/22 22:59 06:59 14:59 Other: Weight 86.183 kg Height 5 feet 4 inches, weight 190 pounds, BMI 32.6. This is a well-developed well-nourished white female who is alert and oriented times 3 in no acute distress. The patient ambulates slowly with a cane. HEENT: Within normal limits. NECK: Supple without mass or thyromegaly. CHEST AND LUNGS: Clear to auscultation. HEART: Regular rate and rhythm. BREASTS: Are without mass or discharge. AXILLARY EXAM: Negative for adenopathy. BACK: Negative for CVA tenderness. ABDOMEN: Soft, nontender, without palpable masses. PELVIC EXAM: Normal external genitalia with mild atrophy. Cervix and vagina appear normal with mild atrophy. There is no unusual discharge. There is a stable grade 1-2 cystocele. The uterus is midposition, nongravid size and nontender. There are no palpable adnexal masses or tenderness. RECTAL EXAM: Rectovaginal exam is negative for mass or tenderness and is negative for occult blood. EXTREMITIES: Nontender. IMPRESSION: 1. 71-year-old menopausal female with stable grade 1-2 cystocele. 2. History of ASCUS Pap smear with negative high-risk HPV testing in 2018. She has had 2 negative Pap smear cotest's in 2019 and 2020. 2. History of osteopenia followed by her abstracter. 3. History of multiple medical problems including multiple sclerosis. PLAN: 1. We will plan on repeating the Pap smear in approximately 2024 and if that one is negative, we will discontinue Pap smears. 2. Self breast awareness was discussed with the patient. We have also discussed symptoms associated with inflammatory breast cancer. 3. Screening mammogram will be done today. 4. Osteoporosis prevention was discussed. I have stressed the importance of adequate calcium, vitamin D and regular exercise. Recommended amounts of calcium and vitamin D were also discussed. She will continue to see her abstracter for bone density testing as she is done in the past. She states she has had a bone density test in the past year through her abstracter. 5. Continue conservative management for the small cystocele. 6. She was advised to return in one year for her annual well woman exam.
--- NOTE | 2022-09-03 10:26 | MM ---
Reason for Exam: Screening (asymptomatic). Last screening mammogram was performed 12 month(s) ago. Patient History: Menarche at age 12. First Full-Term at age 28. Postmenopausal. Maternal grandmother had breast cancer, age 80. Mother had breast cancer, age 80. Risk Values: Romy 5 year model risk: 3.4%. NCI Lifetime model risk: 9.3%. Prior Study Comparison: 06/14/2019 Bilateral Screening Mammogram, [facility]. 07/31/2020 Bilateral Screening Mammogram, [facility]. 08/27/2021 Bilateral MG 3D screening mammo w/cad, [facility]. Tissue Density: There are scattered fibroglandular densities. Findings: Analyzed By CAD. Benign-appearing vascular calcifications bilaterally is redemonstrated. There is no suspicious group of microcalcifications or new suspicious mass in either breast. Overall Assessment: Negative, BI-RAD 1 Management: Screening Mammogram of both breasts in 1 year. . Patient should continue monthly self-breast exams. A clinical breast exam by your physician is recommended on an annual basis. This exam should not preclude additional follow-up of suspicious palpable abnormalities. Note on Romy scores and lifetime risk: 1. A Romy score greater than 3% is considered moderate risk. If this is the case, consider specialist referral to assess eligibility for a risk reducing agent. 2. If overall lifetime risk for the development of breast cancer is 20% or higher, the patient may qualify for future screening with alternating mammogram and breast MRI. Electronically signed and approved by: Glen Manuel M.D.
== END ==
LOC: WWCWWP 13:55
PROVIDERS: ATTEND Obstetrics & Gynecology
DX: Z12.31 Encounter for screening mammogram for malignant neoplasm of breast (principal); E06.3 Autoimmune thyroiditis; F41.9 Anxiety disorder, unspecified; G35 Multiple sclerosis; I10 Essential (primary) hypertension; M79.7 Fibromyalgia; M85.80 Other specified disorders of bone density and structure, unspecified site; N81.10 Cystocele, unspecified; Z79.890 Hormone replacement therapy; Z79.899 Other long term (current) drug therapy; Z80.3 Family history of malignant neoplasm of breast; Z83.3 Family history of diabetes mellitus; Z96.651 Presence of right artificial knee joint; Z87.891 Personal history of nicotine dependence
CPT/HCPCS: 77063; 77067

== ENCOUNTER → 2023-10-06 | Outpatient (CLI) | payer MEDICARE, BC ==
[2023-10-06 13:08] VITALS: BP 134/77; PULSE 83; RESP 17; TEMP 98.2
--- NOTE | 2023-10-06 13:37 | P.HPOB ---
History of Present Illness H&P Date: 10/06/23 Chief Complaint: The patient is here for her routine gynecologic exam and ma mmogram. This is a 72-year-old -0-1-2 with an LMP of 1995. Patient is without gynecologic complaints Review of Systems The patient has gained 9 pounds over the last year. She denies respiratory, cardiac, or G.I. problems. 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 Multiple sclerosis, carpal tunnel chronic back problems, degenerative disc disease, fibromyalgia, and osteopenia. 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 She used HRT for about 10 years in the past. History of Any Multi-Drug Resistant Organisms: None Reported Past Surgical History: Adenoidectomy, Back Surgery, Joint Replacement, Tonsillectomy, Tubal Ligation Additional Past Surgical History / Comment(s): Cervical neck fusion. Right knee replacement surgery. Past Psychological History: Anxiety Smoking Status: Former smoker Past Alcohol Use History: None Reported Additional Past Alcohol Use History / Comment(s): Quit smoking in 2003. Past Drug Use History: None Reported Additional History: She has been a since 2019 and is not sexually active. 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 - Past Family History Father Family Medical History: Diabetes Mellitus Mother Family Medical History: Cancer Additional Family Medical History / Comment(s): Breast and uterine cancer. Maternal grandmother had breast cancer. Medications and Allergies Home Medications Medication Instructions Recorded Confirmed Type ALPRAZolam [Xanax] 0.5 mg PO HS PRN 12/31/13 10/06/23 History Baclofen [Lioresal] 40 mg PO BID 12/31/13 10/06/23 History Gabapentin [Neurontin] 400 mg PO HS 12/31/13 10/06/23 History HYDROcodone/APAP 10-325MG [[place] 1 each PO Q4HR PRN 12/31/13 10/06/23 History 10] Atorvastatin [Lipitor] 20 mg PO DAILY 06/02/18 10/06/23 History Cholecalciferol [Vitamin D3 (25 5,000 unit PO DAILY 02/08/19 10/06/23 History Mcg = 1000 Iu)] Levothyroxine Sodium 112 mcg PO DAILY 02/08/19 10/06/23 History Multivitamin [Multivitamins Adult 1 each PO DAILY 02/08/19 10/06/23 History Gummies] [place]-3/Dha/Epa/Fish Oil [Fish Oil 1 each PO DAILY 02/08/19 10/06/23 History 500 mg Softgel] Vitamin B Complex 1 each PO DAILY 02/08/19 10/06/23 History Losartan [Cozaar] 25 mg PO DAILY 09/02/22 10/06/23 History Allergies Allergy/AdvReac Type Severity Reaction Status Date / Time No Known Allergies Allergy Verified 10/06/23 13:03 Exam Vital Signs Temp Pulse Resp BP Pulse Ox 10/06/23 13:04 98.2 F 83 17 134/77 97 Intake and Output 10/05/23 10/06/23 10/06/23 22:59 06:59 14:59 Other: Weight 90.265 kg Height and weight were not obtainable today because of her inability to stand independently. Recent height and weight were obtained at her PCPs office. She indicates her height was 5 feet 5 inches and weight was 199 pounds. BMI 33.1. This is a well-developed well-nourished white female who is alert and oriented times 3 in no acute distress. She uses a wheelchair. Ambulation with assistance is slow. HEENT: Within normal limits. NECK: Supple without mass or thyromegaly. CHEST AND LUNGS: Clear to auscultation. HEART: Regular rate and rhythm. BREASTS: Are without mass or discharge. AXILLARY EXAM: Negative for adenopathy. BACK: Negative for CVA tenderness. ABDOMEN: Soft, obese, nontender, without palpable masses. PELVIC EXAM: Normal external genitalia with mild atrophy. Cervix and vagina appear normal with mild atrophy. There is no unusual discharge. There is a stable grade 1-2 cystocele. The uterus is midposition, nongravid size and nontender. There are no palpable adnexal masses or tenderness. Bimanual examination is somewhat limited secondary to her size. RECTAL EXAM: Rectovaginal exam is negative for mass or tenderness and is negative for occult blood. EXTREMITIES: Nontender. IMPRESSION: 1. 72-year-old menopausal female with stable grade 1-2 cystocele and otherwise unremarkable gynecologic exam. 2. History of osteopenia PLAN: 1. Pap smear was deferred since she had a negative Pap smear cotest on 07/31. We will plan on repeating the Pap smear next year. If it is negative at that time, we will plan on discontinuing Pap smears. 2. Self breast awareness was discussed with the patient. We have also discussed symptoms associated with inflammatory breast cancer. 3. Screening mammogram will be done today. 4. Osteoporosis prevention was discussed. Bone density testing is done through her ornament setter. She states her last 1 was done approximately 2 years ago at [facility]. 5. Continue conservative management for her mild cystocele. 6. She was advised to return in one year for her annual well woman exam.
--- NOTE | 2023-10-10 17:25 | MM ---
Reason for Exam: Screening (asymptomatic). Last mammogram was performed 1 year(s) and 2 month(s) ago. Patient History: Menarche at age 12. First Full-Term at age 28. Postmenopausal. Patient has history of breast feeding. Maternal grandmother had breast cancer, age 80. Mother had breast cancer, age 80. Risk Values: Romy 5 year model risk: 3.5%. NCI Lifetime model risk: 8.8%. Prior Study Comparison: 05/06/2016 Bilateral Screening Mammogram, [facility]. 05/19/2017 Bilateral Screening Mammogram, [facility]. 06/02/2018 Bilateral Screening Mammogram, [facility] 06/14/2019 Bilateral Screening Mammogram, [facility]. 07/31/2020 Bilateral Screening Mammogram, [facility]. 08/27/2021 Bilateral MG 3D screening mammo w/cad, [facility] 09/02/2022 Bilateral MG 3D screening mammo w/cad, [facility]. Tissue Density: There are scattered areas of fibroglandular density. Findings: Analyzed By CAD. There is no suspicious group of microcalcifications or new suspicious mass in either breast. Overall Assessment: Negative, BI-RAD 1 Management: Screening Mammogram of both breasts in 1 year. See note below in regards to patient's increased 5 year Romy score. Patient should continue monthly self-breast exams. A clinical breast exam by your physician is recommended on an annual basis. This exam should not preclude additional follow-up of suspicious palpable abnormalities. Note on Romy scores and lifetime risk: 1. A Romy score greater than 3% is considered moderate risk. If this is the case, consider specialist referral to assess eligibility for a risk reducing agent. 2. If overall lifetime risk for the development of breast cancer is 20% or higher, the patient may qualify for future screening with alternating mammogram and breast MRI. Electronically signed and approved by: Janice Pearson M.D. Radiologist
== END ==
LOC: WWCWWP 12:43
PROVIDERS: ATTEND Obstetrics & Gynecology
DX: Z12.31 Encounter for screening mammogram for malignant neoplasm of breast (principal); Z01.419 Encounter for gynecological examination (general) (routine) without abnormal findings; I10 Essential (primary) hypertension; E07.9 Disorder of thyroid, unspecified; Z87.891 Personal history of nicotine dependence; Z78.0 Asymptomatic menopausal state; Z87.39 Personal history of other diseases of the musculoskeletal system and connective tissue; Z79.811 Long term (current) use of aromatase inhibitors
CPT/HCPCS: 77063; 77067

== ENCOUNTER → 2024-10-25 | Outpatient (CLI) | payer MEDICARE, BC ==
[2024-10-25 16:07] VITALS: BP 151/83; PULSE 70; RESP 16; TEMP 97.9
--- NOTE | 2024-10-25 17:28 | P.HPOB ---
History of Present Illness H&P Date: 10/25/24 Chief Complaint: The patient is here for her routine gynecologic exam and ma mmogram. This is a 73-year-old -0-1-2 with an LMP of 1995. Patient is without gynecologic complaints. She states she has been having worsening mobility issues related to her MS and back problems. She denies any postmenopausal bleeding. Review of Systems She has lost about 10 pounds over the past year. She states she was put on Ozempic for weight loss. She denies respiratory or cardiac problems. GI: Occasional constipation which she thinks is from the Ozempic. 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 Multiple sclerosis, carpal tunnel chronic back problems, degenerative disc disease, fibromyalgia, and osteopenia. 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 She used HRT for about 10 years in the past. History of Any Multi-Drug Resistant Organisms: None Reported Past Surgical History: Adenoidectomy, Back Surgery, Joint Replacement, Tonsillectomy, Tubal Ligation Additional Past Surgical History / Comment(s): Cervical neck fusion. Right knee replacement surgery. Past Psychological History: Anxiety Smoking Status: Former smoker Past Alcohol Use History: None Reported Additional Past Alcohol Use History / Comment(s): Quit smoking in 2003. Past Drug Use History: None Reported Additional History: She has been a since 2019 and is not sexually active. 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 She is disabled. - Past Family History Father Family Medical History: Diabetes Mellitus Mother Family Medical History: Cancer Additional Family Medical History / Comment(s): Breast and uterine cancer. Maternal grandmother had breast cancer. Medications and Allergies Home Medications Medication Instructions Recorded Confirmed Type ALPRAZolam [Xanax] 0.5 mg PO HS PRN 12/31/13 10/25/24 History Baclofen [Lioresal] 40 mg PO BID 12/31/13 10/25/24 History Gabapentin [Neurontin] 400 mg PO HS 12/31/13 10/25/24 History HYDROcodone/APAP 10-325MG [[place] 1 each PO Q4HR PRN 12/31/13 10/25/24 History 10] Atorvastatin [Lipitor] 20 mg PO DAILY 06/02/18 10/25/24 History Cholecalciferol [Vitamin D3 (25 5,000 unit PO DAILY 02/08/19 10/25/24 History Mcg = 1000 Iu)] Levothyroxine Sodium 112 mcg PO DAILY 02/08/19 10/25/24 History Multivitamin [Multivitamins Adult 1 each PO DAILY 02/08/19 10/25/24 History Gummies] [place]-3/Dha/Epa/Fish Oil [Fish Oil 1 each PO DAILY 02/08/19 10/25/24 History 500 mg Softgel] Vitamin B Complex 1 each PO DAILY 02/08/19 10/25/24 History Losartan [Cozaar] 25 mg PO DAILY 09/02/22 10/25/24 History Allergies Allergy/AdvReac Type Severity Reaction Status Date / Time No Known Allergies Allergy Verified 10/25/24 16:02 Exam Vital Signs Temp Pulse Resp BP Pulse Ox 10/25/24 16:02 97.9 F 70 16 151/83 98 Intake and Output 10/25/24 10/25/24 10/25/24 06:59 14:59 22:59 Other: Weight 95.254 kg This is a well-developed well-nourished white female who is alert and oriented times 3 in no acute distress. She uses a wheelchair for mobility and can only ambulate slowly with assistance. HEENT: Within normal limits. NECK: Supple without mass or thyromegaly. CHEST AND LUNGS: Clear to auscultation. HEART: Regular rate and rhythm. BREASTS: Are without mass or discharge. AXILLARY EXAM: Negative for adenopathy. BACK: Negative for CVA tenderness. ABDOMEN: Soft, nontender, without palpable masses. PELVIC EXAM: Normal external genitalia with mild to moderate atrophy. Cervix and vagina appear normal with mild to moderate atrophy. There is no unusual discharge. There is a stable grade 1-2 cystocele. The uterus is midposition, nongravid size and nontender. There are no palpable adnexal masses or tenderness. RECTAL EXAM: Rectovaginal exam is negative for mass or tenderness and is negative for occult blood. EXTREMITIES: Nontender. IMPRESSION: 1. 73-year-old menopausal female with stable grade 1-2 cystocele and otherwise unremarkable gynecologic exam. 2. History of osteopenia. PLAN: 1. Pap smear cotest was obtained. If this is negative, we will plan on discontinuing Pap smears. 2. Self breast awareness was discussed with the patient. We have also discussed symptoms associated with inflammatory breast cancer. 3. Screening mammogram will be done today. 4. Osteoporosis prevention was discussed. I have stressed the importance of adequate calcium, vitamin D and regular exercise. Recommended amounts of calcium and vitamin D were also discussed. I recommended repeating the bone density test. She is declining bone density testing at this time. She will let me know if she changes her mind about this. 5. We have discussed how Pap smears can be discontinued if this Pap smear is negative. She is considered low risk for gynecologic problems. With her worsening mobility, we have discussed how the risks of trying to get her up on the exam table may not outweigh the benefits from doing her regular gynecologic pelvic exams. She see how her mobility is in the next year or so and if her mobility is good enough to get up on the table, we will we can continue to see her yearly. If her mobility is worsening we can consider discontinuing pelvic exams and in that case, she will see her PCP and get mammogram order slips from her PCP.
--- NOTE | 2024-10-26 08:19 | MM ---
Reason for Exam: Screening (asymptomatic). Last screening mammogram was performed 12 month(s) ago. Patient History: Menarche at age 12. First Full-Term at age 28. Postmenopausal. Patient has history of breast feeding. Maternal grandmother had breast cancer, age 80. Mother had breast cancer, age 80. Risk Values: Romy 5 year model risk: 3.5%. NCI Lifetime model risk: 8.4%. Prior Study Comparison: 08/27/2021 Bilateral MG 3D screening mammo w/cad, [facility]. 09/02/2022 Bilateral MG 3D screening mammo w/cad, [facility]. 10/06/2023 Bilateral MG 3D screening mammo w/cad, [facility]. Tissue Density: The breasts are heterogeneously dense, which may obscure small masses. Findings: Analyzed By CAD. Right breast: There is no suspicious group of microcalcifications or new suspicious mass. Left breast: There is no suspicious group of microcalcifications or new suspicious mass. Overall Assessment: Negative, BI-RAD 1 Management: Screening Mammogram of both breasts in [address] [facility] will attempt to contact patient to return for supplemental views and ultrasound if indicated. Patient should continue monthly self-breast exams. A clinical breast exam by your physician is recommended on an annual basis. This exam should not preclude additional follow-up of suspicious palpable abnormalities. Note on Romy scores and lifetime risk: 1. A Romy score greater than 3% is considered moderate risk. If this is the case, consider specialist referral to assess eligibility for a risk reducing agent. 2. If overall lifetime risk for the development of breast cancer is 20% or higher, the patient may qualify for future screening with alternating mammogram and breast MRI. [facility], , 10/26/2024 8:16 AM. Electronically signed and approved by: Sincere Severino DO
== END ==
LOC: WWCWWP 15:23
PROVIDERS: ATTEND Obstetrics & Gynecology
DX: Z01.419 Encounter for gynecological examination (general) (routine) without abnormal findings (principal); Z12.31 Encounter for screening mammogram for malignant neoplasm of breast; Z78.0 Asymptomatic menopausal state; Z87.39 Personal history of other diseases of the musculoskeletal system and connective tissue
CPT/HCPCS: 77063; 77067